=== PATIENT | female | born 1970 | race Caucasian/White ===

== ENCOUNTER → 2023-03-27 | Day surgery (SDC) | payer BC, OTHER ==
[~2023-03-27] MED LIST: BIRTH CONTROL; CIPRO PO; DICYCLOMINE HCL20 MG PO; LACTATED RINGER'S 1,000 ML ONE; LIDOCAINE HCL 2% LOCAL INJ 5 ML SDV VIAL INJ ONE; MULTI-VITAMIN1 EACH PO; PROPOFOL IV EMULSION 10 MG/ML 20 ML VIAL ONE
[2023-03-27 08:40] VITALS: BP 149/81; PULSE 72; RESP 14; O2SAT 98
== END | disposition home or self-care (01) ==
LOC: OR 06:32
PROVIDERS: ATTEND Internal Medicine Gastroenterology
DX: Z09 Encounter for follow-up examination after completed treatment for conditions other than malignant neoplasm (principal); Z86.010 Personal history of colon polyps; K64.8 Other hemorrhoids; E66.01 Morbid (severe) obesity due to excess calories; Z01.810 Encounter for preprocedural cardiovascular examination; Z68.42 Body mass index [BMI] 45.0-49.9, adult
CPT/HCPCS: 45378; 93005; J2001; J2704; J7121